=== PATIENT | male | born 1970 | race Hispanic/Latino ===

== ENCOUNTER 2019-05-18 04:09 | Emergency (ER) | payer SELFPAY ==
[~2019-05-18] VITALS: Ht 167.6 cm; Wt 97.5 kg
--- OUTSIDE RECORDS SUMMARY | 2019-05-18 04:12 | XMS REPORT ---
Author Author [facility] Address Unknown Phone Unavailable Care Team Providers Care Cafeteria Cook Name Role Phone SG MARTINEZ Unavailable Unavailable Problems This patient has no known problems. Allergies, Adverse Reactions, Alerts This patient has no known allergies or adverse reactions. Medications This patient has no known medications. Results Test Description Test Time Test Comments Text Results Atomic Results Result Comments CT HEAD W/O CONT 2018-01-23 17:46:[address] [id number] IMAGING REPORTPatient Name: FRANCOIS VALENZUELAate of Service: [id number]: 47 Sex: M Order #: [id number] Room: RDOB: 1970 X-Ray Number: [id number] Record Number: [id number] Hospital Number: [id number] Physician: SHA BEAVERS -Ordering Physician: JUAN ANTONIO SMITH head.History: Injury.Technique: Unenhanced CT axial images of the brain with sagittal andcoronal reformatted images.This CT exam was performed using one or more of the following dosereduction techniques: Automated exposure control, adjustment of the MAand/or KV according to patient size or use of iterative reconstructiontechnique.Findings: CT head images demonstrate no acute appearing intracranialabnormalities. The ventricles are symmetric and midline. The harrison-whitematter differentiation is intact. The calvarium appears intact. There issoft tissue sign over the left frontal region.Impression:No acute appearing intracranial abnormalities.Electronically Signed By: Allen Jauregui M.D., 01/23/2018 5:43 PMLegally authenticated by RAYMUNDO [place] 2018-01-23 17:43:38 CBC WITH AUTO DIFF 2016-09-30 17:14:00 WBC (test code=WBC) 10.4 k/ul 4.8-10.8 RBC (test code=RBC) 4.71 Millions/ul 4.70-6.10 Hemoglobin (test code=HGB) 14.1 gm/dl 14.0-18.0 Hematocrit (test code=HCT) 42.7 % 42.0-50.0 MCV (test code=MCV) 90.6 fL 80.0-94.0 MCH (test code=MCH) 29.9 pg 27.0-31.0 MCHC (test code=MCHC) 33.0 gm/dl 33.0-37.0 RDW (test code=RDWVC) 13.0 % 11.5-14.5 Platelet (test code=PLT) 320 10\S\3/ul 130-400 MPV (test code=MPV) 8.4 fL 7.4-10.4 NE% (test code=NE) 61.7 % 42.0-75.0 LY% (test code=LY) 27.6 % 13.0-42.0 MO% (test code=MO) 7.0 % 4.0-14.0 EO% (test code=EO) 3.1 % 1.0-3.0 BA% (test code=BA) 0.6 % 1.0-3.0 NRBC, Auto (test code=NRBC_AUTO) 0
[2019-05-18] MEDS ORDERED: SODIUM CHLORIDE 0.9% 1000ML 1,000 ML ONE ×2 (04:52→04:55)
[2019-05-18] MEDS ORDERED: LACTATED RINGER'S 2,000 ML ONE ×2 (05:00→05:41)
[2019-05-18] MEDS ORDERED: LACTATED RINGER'S 2,000 ML IV ONE (05:30)
[2019-05-18] MEDS ORDERED: SODIUM CHLORIDE 0.9% 1000ML 2,000 ML IV ONE (05:30)
[2019-05-18] MEDS ORDERED: IBUPROFEN 200 MG TAB ONE (05:39)
[2019-05-18] MEDS ORDERED: IBUPROFEN 400 MG TAB PO ONE (05:45)
[2019-05-18] MEDS ORDERED: ERYTHROMYCIN (OPTH) 3.5 GM OINT OP ONE ×2 (06:14→06:15)
== END 2019-05-18 06:33 | disposition home or self-care (01) ==
LOC: FSED 04:09
DX: H57.12 Ocular pain, left eye (principal); H10.212 Acute toxic conjunctivitis, left eye; H10.211 Acute toxic conjunctivitis, right eye; T54.3X1A Toxic effect of corrosive alkalis and alkali-like substances, accidental (unintentional), initial encounter
CPT/HCPCS: 99283; J7030; J7121